=== PATIENT | female | born 1965 | race Asian ===

== ENCOUNTER 2016-09-02 19:41 | Emergency (ER) | payer OTHER ==
[~2016-09-02] VITALS: Ht 152.4 cm; Wt 68.0 kg
[~2016-09-02 19:41] MED LIST: FAMOTIDINE40 M1 PO; K-DUR20 MEQ PO; LOMOTIL 0.025 M1 TA1 PO; MECLIZINE25 M2 PO; MOTRIN600 MG PO; ORETIC25 MG PO; ZOCOR10 MG PO; ZOFRAN ODT4 MG SL
[2016-09-02 19:59] VITALS: BP 125/59
--- NOTE | 2016-09-02 21:26 | NUR ---
PT TAKEN TO BED 6
--- NOTE | 2016-09-02 21:35 | NUR ---
PT C/O SWOLLEN LIPS SINCE 1300 TODAY. STATES IT STARTED ITCHING BEFORE SWELLING AND SHE TOOK CLARITIN AT 1600 WITH NO RELIEF.
--- NOTE | 2016-09-02 23:12 | NUR ---
Dr. Mcghee evaluating patient at bedside.
[2016-09-02] MEDS ORDERED: diphenhydrAMINE 50 MG CAP PO ONE (23:20)
[2016-09-02 23:45] VITALS: BP 119/62
--- NOTE | 2016-09-02 23:46 | NUR ---
Patient discharged with v/s stable. Written and verbal after care instructions given and explained. Patient alert, oriented and verbalized understanding of instructions. Ambulatory with steady gait. All questions addressed prior to discharge. ID band removed. Patient advised to follow up with PMD. Rx of PREDNISONE 20MG PO, BENADRYL 25MG PO given. Patient educated on indication of medication including possible reaction and side effects. Opportunity to ask questions provided and answered.
== END 2016-09-02 23:46 | disposition home or self-care (01) ==
LOC: MED 19:41
DX: T78.40XA Allergy, unspecified, initial encounter (principal); R21 Rash and other nonspecific skin eruption; J45.909 Unspecified asthma, uncomplicated; I10 Essential (primary) hypertension; Z79.899 Other long term (current) drug therapy; X58.XXXA Exposure to other specified factors, initial encounter
CPT/HCPCS: 99283; Q0163

== ENCOUNTER 2018-05-21 22:06 | Emergency (ER) | payer OTHER ==
[~2018-05-21] VITALS: Ht 160 cm; Wt 68.0 kg
[~2018-05-21 22:06] MED LIST changes: +ATRO1TAB PO; +FAMO40TA12 PO; -FAMOTIDINE40 M1 PO; -K-DUR20 MEQ PO; -LOMOTIL 0.025 M1 TA1 PO; +MECL-272 PO; -MECLIZINE25 M2 PO; -MOTRIN600 MG PO; +ONDA4ODT1 SL; +ORE25 PO; -ORETIC25 MG PO; +POTA20TE62 PO; +SIMV10TA1 PO; -ZOCOR10 MG PO; -ZOFRAN ODT4 MG SL
[2018-05-21 22:09] VITALS: BP 121/71
[2018-05-21 22:44] LABS: BASOPHILS # (AUTO) 0.1 K/uL (0.00-0.22); BASOPHILS % (AUTO) 1.1 % (0.0-2.0); EOSINOPHILS # (AUTO) 0.6 K/uL (0-0.4); EOSINOPHILS % (AUTO) 5.1 % (0.0-4.0); HEMATOCRIT 38.1 % (36-48); HEMOGLOBIN 12.7 g/dL (12.0-16.0); LYMPHOCYTES # (AUTO) 2.2 K/uL (2.5-16.5); LYMPHOCYTES % (AUTO) 18.2 % (20.5-51.1); MEAN CORPUSCULAR HEMOGLOBIN 26 pg (27-31); MEAN CORPUSCULAR HGB CONC 33 g/dL (33-37); MEAN CORPUSCULAR VOLUME 77.4 fL (80-94); MONOCYTES # (AUTO) 0.5 K/uL (0.8-1.0); NEUTROPHILS # (AUTO) 8.6 K/uL (1.8-7.7); NEUTROPHILS % (AUTO) 71.6 % (42.2-75.2); PLATELET COUNT (AUTO) 292 K/uL (140-450); RED BLOOD CELL COUNT(AUTO) 4.92 MIL/uL (4.20-5.40); RED CELL DISTRIBUTION WIDTH 14.4 % (11.6-13.7)
[2018-05-21 23:03] LABS: ALBUMIN 3.7 g/dL (3.4-5.0); ANION GAP 12.7 (8-16); CARBON DIOXIDE 30.7 mmol/L (21-32); TOTAL BILIRUBIN 0.4 mg/dL (0.0-1.0)
[2018-05-21 23:04] LABS: POTASSIUM 2.4 mmol/L (3.5-5.1)
[2018-05-21] MEDS: LORazepam 2 MG/ML VIAL IVP ONE (23:04)
[2018-05-21] MEDS: KETOROLAC 15 MG/ML VIAL IVP ONE (23:05)
[2018-05-21 23:08] LABS: PROTHROMBIN TIME 9.5 secs (10.8-13.4)
[2018-05-21] MEDS: POTASSIUM CHLORIDE 20% 40 MEQ/15 ML UDC PO ONE (23:42)
[2018-05-21] MEDS: KCL 20 MEQ/WATER INJ PREMIX 100 ML IV ONE (23:44)
[2018-05-22] MEDS: diphenhydrAMINE 50 MG/ML VIAL IVP ONE (01:27)
[2018-05-22] MEDS: methylPREDNISolone SS 40 MG in WATER STERILE 1 ML IV ONE (02:39)
[2018-05-22 05:10] VITALS: BP 138/70
== END 2018-05-22 05:10 | disposition home or self-care (01) ==
LOC: MED 22:06
DX: G47.00 Insomnia, unspecified (principal); E87.6 Hypokalemia; R06.00 Dyspnea, unspecified; R07.89 Other chest pain; J45.909 Unspecified asthma, uncomplicated; I10 Essential (primary) hypertension; Z91.013 Allergy to seafood; Z79.899 Other long term (current) drug therapy
CPT/HCPCS: 36415; 71045; 71275; 80053; 84484; 85025; 85379; 85610; 85730; 96365; 96366; 96375; 99285; J1200; J1885; J2060; J2920; J3480; Q9967; J0171

== ENCOUNTER 2018-11-27 10:32 | Emergency (ER) | payer OTHER ==
[~2018-11-27] VITALS: Ht 152.4 cm; Wt 69.9 kg
[~2018-11-27 10:32] MED LIST changes: +ONDA-24 SL; -ONDA4ODT1 SL
[2018-11-27 10:36] VITALS: BP 142/91
--- NOTE | 2018-11-27 10:42 | NUR ---
Patient ambulated to bed 3. RN evaluating patient at bedside.
--- NOTE | 2018-11-27 10:43 | NUR ---
PATIENT PRESENTS TO ED WITH COUGH&SOB X 4 DAYS . DENIES N/V/D; SKIN IS PINK/WARM/DRY; AAOX4 WITH EVEN AND STEADY GAIT; LUNGS WHEEZING BL; HR EVEN AND REGULAR; PT DENIES ANY FEVER OR CP AT THIS TIME; PATIENT STATES PAIN OF 0/10 AT THIS TIME; PATIENT POSITIONED FOR COMFORT; HOB ELEVATED; BEDRAILS UP X2; BED DOWN. ER MD MADE AWARE OF PT STATUS.
--- NOTE | 2018-11-27 10:45 | NUR ---
Dr. Patterson evaluating patient at bedside.
--- NOTE | 2018-11-27 10:48 | NUR ---
Delio lindsey in [facility] - 11/27/18 at 1048 by [email or web address] Patient being evaluated by DR THOMPSON at bedside.
[2018-11-27] MEDS ORDERED: IPRATROPIUM 0.02% 0.5 MG/2.5 ML NEBU INH ONE (10:50)
[2018-11-27] MEDS ORDERED: ALBUTEROL 0.083% 2.5 MG/3 ML NEBU INH ONE ×2 (10:50→12:25)
--- NOTE | 2018-11-27 10:54 | NUR ---
RT AT BEDSIDE FOR BREATHING TREATMENT
[2018-11-27] MEDS: predniSONE 20 MG TAB PO ONE ×2 (10:58→11:01)
--- NOTE | 2018-11-27 11:00 | NUR ---
PT STATED TOOK PREDNISONE [address] THOMPSON GAVE 20 MG AT THIS TIME
--- NOTE | 2018-11-27 11:06 | NUR ---
medical equipment repair technician at bedside.
--- NOTE | 2018-11-27 11:07 | NUR ---
X RAY AT BEDSIDE
--- NOTE | 2018-11-27 12:11 | NUR ---
Dr. Patterson evaluating patient at bedside.
--- NOTE | 2018-11-27 12:31 | NUR ---
RT AT BEDSIDE FOR BREATHING TREATMENT
[2018-11-27 13:50] VITALS: BP 117/58
--- NOTE | 2018-11-27 13:50 | NUR ---
Patient discharged with v/s stable. Written and verbal after care instructions given and explained. Patient alert, oriented and verbalized understanding of instructions. Ambulatory with steady gait. All questions addressed prior to discharge. ID band removed. Patient advised to follow up with PMD. Rx of TESSALON & MUCINEX given. Patient educated on indication of medication including possible reaction and side effects. Opportunity to ask questions provided and answered.
== END 2018-11-27 13:50 | disposition home or self-care (01) ==
LOC: MED 10:32
DX: J45.901 Unspecified asthma with (acute) exacerbation (principal); B34.9 Viral infection, unspecified; E11.9 Type 2 diabetes mellitus without complications; I10 Essential (primary) hypertension; Z79.899 Other long term (current) drug therapy
CPT/HCPCS: 71045; 81002; 81025; 94640; 99284; J7512; J7613; J7644

== ENCOUNTER 2020-11-02 12:07 | Emergency (ER) | payer OTHER ==
[~2020-11-02] VITALS: Ht 152.4 cm; Wt 72.6 kg
[~2020-11-02 12:07] MED LIST changes: +HYDR-4004 PO; -MECL-272 PO; +MECL-303 PO; -ORE25 PO
[2020-11-02 12:11] VITALS: BP 183/97
--- NOTE | 2020-11-02 12:26 | NUR ---
Patient ambulated to bed 2. RN evaluating the patient at bedside.
--- NOTE | 2020-11-02 12:40 | NUR ---
Dr. Gomez is evaluating the patient at bedside.
--- NOTE | 2020-11-02 12:41 | NUR ---
Pt received Moderna Vaccine x4 days ago. Pt c/o epigastric pain x3 days with nausea and diarrhea. Pt awake and alert. Said evaluating pt at bedside.
[2020-11-02 13:10] LABS: BASOPHILS # (AUTO) 0.1 K/uL (0.00-0.22); BASOPHILS % (AUTO) 0.5 % (0.0-2.0); EOSINOPHILS # (AUTO) 0.2 K/uL (0-0.4); HEMATOCRIT 39.9 % (36-48); LYMPHOCYTES # (AUTO) 1.2 K/uL (2.5-16.5); LYMPHOCYTES % (AUTO) 10.4 % (20.5-51.1); MEAN CORPUSCULAR HEMOGLOBIN 26 pg (27-31); MEAN CORPUSCULAR HGB CONC 33 g/dL (33-37); MEAN CORPUSCULAR VOLUME 78.5 fL (80-94); MONOCYTES # (AUTO) 0.3 K/uL (0.8-1.0); MONOCYTES % (AUTO) 2.5 % (1.7-9.3); NEUTROPHILS # (AUTO) 9.4 K/uL (1.8-7.7); NEUTROPHILS % (AUTO) 84.6 % (42.2-75.2); PLATELET COUNT (AUTO) 282 K/uL (140-450); RED BLOOD CELL COUNT(AUTO) 5.08 MIL/uL (4.20-5.40); RED CELL DISTRIBUTION WIDTH 14.2 % (11.6-13.7); WHITE BLOOD COUNT (AUTO) 11.1 K/uL (4.8-10.8)
[2020-11-02] MEDS ORDERED: ONDANSETRON 4 MG/2 ML VIAL IVP ONE (13:10)
[2020-11-02] MEDS ORDERED: NACL 0.9% 1,000 ML IV ONE (13:10)
[2020-11-02] MEDS ORDERED: MORPHINE SULFATE 4 MG/ML SYR IVP ONE (13:10)
[2020-11-02 13:25] LABS: ALBUMIN 3.8 g/dL (3.4-5.0); CARBON DIOXIDE 29.5 mmol/L (21-32); POTASSIUM 3.5 mmol/L (3.5-5.1); TOTAL BILIRUBIN 0.3 mg/dL (0.0-1.0)
--- NOTE | 2020-11-02 13:32 | NUR ---
Ultrasound at bedside
--- NOTE | 2020-11-02 14:30 | NUR ---
Pt resting in bed talking on cell phone. Vital Signs Stable. Will continue to monitor.
[2020-11-02] MEDS ORDERED: ACET-1194 PO (15:16)
[2020-11-02] MEDS ORDERED: FAMO40TA12 PO (15:16)
[2020-11-02] MEDS ORDERED: ONDA-24 SL (15:16)
[2020-11-02 15:28] VITALS: BP 122/68
--- NOTE | 2020-11-02 15:28 | NUR ---
Patient discharged with v/s stable. Written and verbal after care instructions given and explained.vPatient alert, oriented and verbalized understanding of instructions. Ambulatory with steady gait. All questions addressed prior to discharge. ID band removed. Patient advised to follow up with PMD. Rx of Acetaminophen, Famotidine, and Ondansetron was given. Patient educated on indication of medication including possible reaction and side effects. Opportunity to ask questions provided and answered.
== END 2020-11-02 15:28 | disposition home or self-care (01) ==
LOC: MED 12:07
DX: R10.13 Epigastric pain (principal); R11.0 Nausea; K76.0 Fatty (change of) liver, not elsewhere classified; J45.909 Unspecified asthma, uncomplicated; E11.9 Type 2 diabetes mellitus without complications; I10 Essential (primary) hypertension; Z91.013 Allergy to seafood
CPT/HCPCS: 36415; 76705; 80053; 83690; 85025; 96361; 96374; 96375; 99284; J2270; J2405; J7030

== ENCOUNTER 2020-12-12 19:38 | Emergency (ER) | payer OTHER ==
[~2020-12-12] VITALS: Ht 152.4 cm; Wt 88.5 kg
[~2020-12-12 19:38] MED LIST changes: +ACET-1194 PO
[2020-12-12 19:47] VITALS: BP 156/100
--- NOTE | 2020-12-12 19:50 | NUR ---
TO LOBBY A/W BED AMBULATORY
[2020-12-12] MEDS ORDERED: ACET-10509 PO ×2 (20:37→21:54)
[2020-12-12] MEDS ORDERED: GABA100C PO ×2 (20:37→21:54)
[2020-12-12] MEDS ORDERED: IBUP-2213 PO ×2 (20:37→21:54)
[2020-12-12] MEDS ORDERED: ACYC400T PO (20:37)
--- NOTE | 2020-12-12 20:50 | NUR ---
no nursing intervention ordered by Dr. Nj.
--- NOTE | 2020-12-12 20:50 | NUR ---
pt d/c with VSS. d/c education given. opportunity to ask questions given and answered. rx of tylenol, acyclovir, neurontin, ibuprofen given.
[2020-12-12] MEDS ORDERED: ACYC800T1 PO (21:54)
== END 2020-12-12 20:49 | disposition home or self-care (01) ==
LOC: MED 19:38
DX: B02.9 Zoster without complications (principal); J45.909 Unspecified asthma, uncomplicated; E11.9 Type 2 diabetes mellitus without complications; I10 Essential (primary) hypertension; E78.5 Hyperlipidemia, unspecified; Z79.899 Other long term (current) drug therapy
CPT/HCPCS: 99283

== ENCOUNTER 2021-10-07 09:32 | Emergency (ER) | payer OTHER ==
[~2021-10-07] VITALS: Ht 172.7 cm; Wt 71.7 kg
[~2021-10-07 09:32] MED LIST changes: +ACET-10509 PO; +ACYC-279 PO; +ACYC400T14 PO; +GABA100C PO; +IBUP-2213 PO; +ONDA-188 SL; -ONDA-24 SL
[2021-10-07 09:35] VITALS: BP 133/73
--- NOTE | 2021-10-07 09:45 | NUR ---
56 Y/O F BROUGHT TO BED 4 VIA WC, BIB SON C/O ABD WITH NAUSEA AND DIARRHEA, WEAKNESS, FEVER X2 DAYS 98.6 IN TRIAGE, HOME COVID TEST NEG. YESTERDAY NKDA FOOD ALLERGY FISH PMH: ASTHMA, DM, HTN, HLD
--- NOTE | 2021-10-07 09:54 | NUR ---
DR DELGADO AT BEDSIDE FOR MSE
[2021-10-07] MEDS ORDERED: ONDANSETRON 4 MG/2 ML VIAL IVP ONE (10:00)
[2021-10-07] MEDS ORDERED: MORPHINE SULFATE 4 MG/ML SYR IVP ONE (10:00)
[2021-10-07] MEDS ORDERED: NACL 0.9% 1,000 ML IV ONE (10:00)
--- NOTE | 2021-10-07 10:12 | NUR ---
WALKED URINE TO LAB
--- NOTE | 2021-10-07 10:12 | NUR ---
PT TAKEN TO CT VIA WC WITH TECHNOLOGY ADOPTION MANAGER
--- NOTE | 2021-10-07 10:16 | NUR ---
BLOOD COLLECTED AND WALKED TO LAB. HANDED TO [employer] TECH
--- NOTE | 2021-10-07 10:20 | NUR ---
PT BACK FROME CT
--- NOTE | 2021-10-07 10:24 | NUR ---
LAB AT BEDSIDE FOR BLOOD CULTURES
--- NOTE | 2021-10-07 10:25 | NUR ---
SAMSON SWAB HANDED TO MENTAL HEALTH CASE MANAGER IN ED
[2021-10-07] MEDS ORDERED: HYDROcodone/APAP 5/325 MG 1 TAB TAB PO ONE (11:00)
[2021-10-07] MEDS ORDERED: ONDANSETRON 4 MG ODT PO ONE (11:00)
[2021-10-07] MEDS ORDERED: LOPERAMIDE 2 MG CAP PO ONE (11:00)
[2021-10-07 11:26] LABS: ALBUMIN 3.3 g/dL (3.4-5.0); ANION GAP 12.6 (8-16); CARBON DIOXIDE 27.9 mmol/L (21-32); CREATININE 0.8 mg/dL (0.6-1.3); POTASSIUM 3.5 mmol/L (3.5-5.1); TOTAL BILIRUBIN 0.4 mg/dL (0.0-1.0)
[2021-10-07 11:42] LABS: APPEARANCE,URINE CLEAR (CLEAR); BILIRUBIN,URINE NEGATIVE (NEGATIVE); BLOOD, URINE NEGATIVE (NEGATIVE); COLOR,URINE YELLOW (YELLOW); LEUKOCYTE ESTERASE ,URINE NEGATIVE (NEGATIVE); NITRITE, URINE NEGATIVE (NEGATIVE); UGLUCOSE NEGATIVE (NEGATIVE)
[2021-10-07] MEDS ORDERED: ONDA-188 SL (12:50)
[2021-10-07] MEDS ORDERED: LOPE-289 PO (12:50)
[2021-10-07 13:05] VITALS: BP 123/59
--- NOTE | 2021-10-07 13:05 | NUR ---
Patient discharged with v/s stable. Written and verbal after care instructions given and explained. Patient alert, oriented and verbalized understanding of instructions. Ambulatory with steady gait. All questions addressed prior to discharge. ID band removed. Patient advised to follow up with PMD. Rx of IMODIUM, ZOFRAN given. Patient educated on indication of medication including possible reaction and side effects. Opportunity to ask questions provided and answered.
== END 2021-10-07 13:05 | disposition home or self-care (01) ==
LOC: MED 09:32
DX: K52.9 Noninfective gastroenteritis and colitis, unspecified (principal); J45.909 Unspecified asthma, uncomplicated; I10 Essential (primary) hypertension; E11.9 Type 2 diabetes mellitus without complications; Z20.822 Contact with and (suspected) exposure to COVID-19
CPT/HCPCS: 36415; 74176; 80053; 81003; 81025; 83605; 83690; 85025; 87040; 87426; 99285; Q0162

== ENCOUNTER 2024-02-15 10:00 | Day surgery (SDC) | payer OTHER ==
[~2024-02-15] VITALS: Ht 152.4 cm; Wt 68.0 kg
[~2024-02-15 10:00] MED LIST changes: +LOPE-289 PO; +SIMV-371 PO; -SIMV10TA1 PO
[2024-02-15] MEDS ORDERED: fentaNYL citrate 0.05 MG/ML VIAL ONE (11:29)
[2024-02-15] MEDS ORDERED: LIDOCAINE 2% 100 MG/5 ML UJET TP ONE (11:30)
[2024-02-15] MEDS ORDERED: MIDAZOLAM 5 MG/5 ML VIAL ONE (11:37)
[2024-02-15] MEDS: fentaNYL citrate 0.05 MG/ML VIAL IVP ONE (12:19)
== END 2024-02-15 13:35 | disposition home or self-care (01) ==
LOC: MDS 10:00 → MMU 10:02 → MDS 13:35
PROVIDERS: ATTEND Internal Medicine Gastroenterology
DX: R10.84 Generalized abdominal pain (principal); K59.00 Constipation, unspecified; K57.32 Diverticulitis of large intestine without perforation or abscess without bleeding; K64.9 Unspecified hemorrhoids; I10 Essential (primary) hypertension; E78.00 Pure hypercholesterolemia, unspecified; E11.9 Type 2 diabetes mellitus without complications; J45.909 Unspecified asthma, uncomplicated; Z86.010 Personal history of colon polyps; Z91.013 Allergy to seafood; Z79.899 Other long term (current) drug therapy
CPT/HCPCS: 45378; 82948; J3010; J2250